=== PATIENT | male | born 1950 | race Caucasian/White ===

== ENCOUNTER 2018-12-29 11:35 | Inpatient (IN) | payer OTHER, BC, MEDICARE ==
[2018-12-29] MEDS ORDERED: PIPERACILLIN/TAZOBACT 3.375 GM 3.375 GM in SODIUM CHLORIDE 0.9% 100 ML 100 ML IV ONE (12:42)
[2018-12-29] MEDS ORDERED: SODIUM CHLORIDE 0.9% 50 ML 25 ML IV PRN (12:42)
[2018-12-29 12:55] LABS: BASOPHILS % (AUTO) 0 % (0-3); EOSINOPHILS % (AUTO) 0 % (0-9); HEMATOCRIT 40 % (39-53); HEMOGLOBIN 12.6 gm/dl (13.5-17.7); LYMPHOCYTES % (AUTO) 3.1 % (10-50); MEAN CORPUSCULAR HEMOGLOBIN 28.4 pg (27.0-32.0); MEAN CORPUSCULAR HGB CONC 31.8 gm/dl (32.0-36.0); MEAN CORPUSCULAR VOLUME 89 fL (80-100); MONOCYTES % (AUTO) 11.5 % (0-12); NEUTROPHILS % (AUTO) 84.9 % (37-80)
[2018-12-29 13:04] LABS: INR 1.13 (0.86-1.12)
[2018-12-29 13:09] LABS: ALBUMIN 2.5 gm/dl (3.4-5.0); BILIRUBIN,TOTAL 0.9 mg/dl (0.2-1.0); CALCIUM 8.3 mg/dl (8.5-10.1); CARBON DIOXIDE 30.4 mEq/L (21-32); CREATININE 1.03 mg/dl (0.80-1.30); POTASSIUM 3.5 mMol/L (3.5-5.1); TOTAL PROTEIN 6.9 gm/dl (6.4-8.2)
[2018-12-29] MEDS: SODIUM CHLORIDE 0.9% FLUSH 10 ML SOL IV PRN (13:25)
[2018-12-29] MEDS ORDERED: PIPERACILLIN/TAZOBACT 3.375 GM PDS IV ONE ×2 (13:34→19:58)
[2018-12-29 13:54] LABS: CRP INFLAMMATORY 17.39 mg/dl (0.00-0.33)
[2018-12-29 14:03] LABS: LACTIC ACID 1.2 mMol/L (0.0-2.0)
[2018-12-29] MEDS ORDERED: SODIUM CHLORIDE 0.9% 1000ML 1,000 ML IV ONE (15:28)
[2018-12-29] MEDS: SODIUM CHLORIDE 0.9% FLUSH 10 ML SOL IV SCH (17:31)
[2018-12-29] MEDS: IBUPROFEN 600 MG TAB PO PRN (17:57)
[2018-12-29 18:31] LABS: APPEARANCE,URINE Clear; BILIRUBIN,URINE 2+ (NEGATIVE); COLOR,URINE Amber; GLUCOSE, URINE (UA) TRACE (NEGATIVE); KETONES,URINE TRACE (NEGATIVE); LEUKOCYTE ESTERASE ,URINE NEGATIVE (NEGATIVE); NITRATE,URINE NEGATIVE (NEGATIVE); OCCULT BLOOD,URINE 1+ (NEG-TRACE); UROBILINOGEN,URINE >=8.0 (0.2-1.0 EU)
[2018-12-29] MEDS: ENOXAPARIN 40 MG SOL SC SCH (18:49)
[2018-12-29 19:03] LABS: ICTOTEST,URINE NEGATIVE (NEGATIVE)
[2018-12-29 19:04] LABS: BACTERIA 1+ (< 1+); CRYSTALS NEGATIVE (0-3 AVE/HPF)
[2018-12-29] MEDS ORDERED: SODIUM CHLORIDE 0.9% 100 ML 100 ML IV ONE (19:58)
[2018-12-29] MEDS: PIPERACILLIN/TAZOBACT 3.375 GM 3.375 GM in SODIUM CHLORIDE 0.9% 100 ML 100 ML IV SCH (21:06)
[2018-12-30] MEDS: SODIUM CHLORIDE 0.9% FLUSH 10 ML SOL IV SCH ×5 (01:06→21:09)
[2018-12-30] MEDS ORDERED: PIPERACILLIN/TAZOBACT 3.375 GM PDS IV ONE ×4 (02:40→19:38)
[2018-12-30] MEDS ORDERED: SODIUM CHLORIDE 0.9% 100 ML 100 ML IV ONE ×4 (02:40→19:38)
[2018-12-30] MEDS: SODIUM CHLORIDE 0.9% FLUSH 10 ML SOL IV PRN ×3 (02:53→20:00)
[2018-12-30] MEDS: PIPERACILLIN/TAZOBACT 3.375 GM 3.375 GM in SODIUM CHLORIDE 0.9% 100 ML 100 ML IV SCH ×4 (02:53→21:10)
[2018-12-30 07:25] LABS: CALCIUM 8.1 mg/dl (8.5-10.1); CARBON DIOXIDE 30.7 mEq/L (21-32); CREATININE 0.93 mg/dl (0.80-1.30); CRP INFLAMMATORY 18.57 mg/dl (0.00-0.33); POTASSIUM 3.7 mMol/L (3.5-5.1)
[2018-12-30 07:28] LABS: BASOPHILS % (AUTO) 1 % (0-3); EOSINOPHILS % (AUTO) 1 % (0-9); HEMATOCRIT 35 % (39-53); HEMOGLOBIN 11.5 gm/dl (13.5-17.7); LYMPHOCYTES % (AUTO) 6.7 % (10-50); MEAN CORPUSCULAR HEMOGLOBIN 29.2 pg (27.0-32.0); MEAN CORPUSCULAR VOLUME 89 fL (80-100); MONOCYTES % (AUTO) 7.5 % (0-12); NEUTROPHILS % (AUTO) 84.7 % (37-80)
[2018-12-30] MEDS: ACETAMINOPHEN 325 MG PO PRN ×3 (08:39→21:43)
[2018-12-30] MEDS: MULTIVITAMIN2 1 EA TAB PO SCH (08:39)
[2018-12-30] MEDS ORDERED: SODIUM CHLORIDE 0.9% 250 ML 250 ML IV ONE (18:12)
[2018-12-30] MEDS ORDERED: VANCOMYCIN HYDROCHLORIDE 500 MG PDS IV ONE (18:12)
[2018-12-30] MEDS: VANCOMYCIN HCL 500 MG PDS 1,250 MG in SODIUM CHLORIDE 0.9% 250 ML 250 ML IV SCH (18:29)
[2018-12-30] MEDS: ENOXAPARIN 40 MG SOL SC SCH (18:30)
[2018-12-31] MEDS ORDERED: PIPERACILLIN/TAZOBACT 3.375 GM PDS IV ONE ×4 (02:09→21:02)
[2018-12-31] MEDS ORDERED: SODIUM CHLORIDE 0.9% 100 ML 100 ML IV ONE ×4 (02:09→21:02)
[2018-12-31] MEDS: IBUPROFEN 600 MG TAB PO PRN ×3 (02:17→22:13)
[2018-12-31] MEDS: PIPERACILLIN/TAZOBACT 3.375 GM 3.375 GM in SODIUM CHLORIDE 0.9% 100 ML 100 ML IV SCH ×4 (02:18→21:19)
[2018-12-31] MEDS: SODIUM CHLORIDE 0.9% FLUSH 10 ML SOL IV SCH ×3 (02:18→15:30)
[2018-12-31] MEDS ORDERED: VANCOMYCIN HYDROCHLORIDE 500 MG PDS IV ONE ×2 (05:28→16:50)
[2018-12-31] MEDS ORDERED: SODIUM CHLORIDE 0.9% 250 ML 250 ML IV ONE ×2 (05:28→16:50)
[2018-12-31] MEDS: VANCOMYCIN HCL 500 MG PDS 1,250 MG in SODIUM CHLORIDE 0.9% 250 ML 250 ML IV SCH ×2 (06:20→17:56)
[2018-12-31] MEDS: SODIUM CHLORIDE 0.9% FLUSH 10 ML SOL IV PRN ×4 (06:21→21:19)
[2018-12-31 07:36] LABS: CALCIUM 8.1 mg/dl (8.5-10.1); CARBON DIOXIDE 29.1 mEq/L (21-32); CREATININE 0.97 mg/dl (0.80-1.30); CRP INFLAMMATORY 15.43 mg/dl (0.00-0.33); POTASSIUM 3.4 mMol/L (3.5-5.1)
[2018-12-31 07:46] LABS: BASOPHILS % (AUTO) 1 % (0-3); EOSINOPHILS % (AUTO) 1 % (0-9); HEMATOCRIT 34 % (39-53); LYMPHOCYTES % (AUTO) 5.5 % (10-50); MEAN CORPUSCULAR HGB CONC 32.6 gm/dl (32.0-36.0); MEAN CORPUSCULAR VOLUME 89 fL (80-100); MONOCYTES % (AUTO) 8.2 % (0-12); NEUTROPHILS % (AUTO) 85.1 % (37-80)
[2018-12-31 08:33] LABS: APPEARANCE,URINE Clear; BILIRUBIN,URINE NEGATIVE (NEGATIVE); COLOR,URINE Yellow; GLUCOSE, URINE (UA) NEGATIVE (NEGATIVE); KETONES,URINE NEGATIVE (NEGATIVE); LEUKOCYTE ESTERASE ,URINE NEGATIVE (NEGATIVE); NITRATE,URINE NEGATIVE (NEGATIVE); OCCULT BLOOD,URINE 2+ (NEG-TRACE)
[2018-12-31 08:35] LABS: BACTERIA 1+ (< 1+); CRYSTALS NEGATIVE (0-3 AVE/HPF)
[2018-12-31] MEDS: MULTIVITAMIN2 1 EA TAB PO SCH (08:36)
[2018-12-31] MEDS: ACETAMINOPHEN 325 MG PO PRN (14:54)
[2018-12-31] MEDS: ENOXAPARIN 40 MG SOL SC SCH (17:56)
[2019-01-01] MEDS: SODIUM CHLORIDE 0.9% FLUSH 10 ML SOL IV SCH ×3 (01:48→17:54)
[2019-01-01] MEDS ORDERED: SODIUM CHLORIDE 0.9% 100 ML 100 ML IV ONE ×4 (03:08→18:23)
[2019-01-01] MEDS ORDERED: PIPERACILLIN/TAZOBACT 3.375 GM PDS IV ONE ×4 (03:08→18:21)
[2019-01-01] MEDS: PIPERACILLIN/TAZOBACT 3.375 GM 3.375 GM in SODIUM CHLORIDE 0.9% 100 ML 100 ML IV SCH ×4 (03:14→21:22)
[2019-01-01] MEDS: SODIUM CHLORIDE 0.9% FLUSH 10 ML SOL IV PRN ×2 (03:15→06:14)
[2019-01-01] MEDS: ACETAMINOPHEN 325 MG PO PRN ×3 (04:09→22:15)
[2019-01-01] MEDS ORDERED: VANCOMYCIN HYDROCHLORIDE 500 MG PDS IV ONE ×2 (05:59→17:32)
[2019-01-01] MEDS ORDERED: SODIUM CHLORIDE 0.9% 250 ML 250 ML IV ONE ×2 (05:59→17:32)
[2019-01-01] MEDS: VANCOMYCIN HCL 500 MG PDS 1,250 MG in SODIUM CHLORIDE 0.9% 250 ML 250 ML IV SCH ×2 (06:13→17:54)
[2019-01-01 07:19] LABS: BASOPHILS % (AUTO) 0 % (0-3); EOSINOPHILS % (AUTO) 0 % (0-9); HEMATOCRIT 33 % (39-53); HEMOGLOBIN 10.6 gm/dl (13.5-17.7); LYMPHOCYTES % (AUTO) 3.4 % (10-50); MEAN CORPUSCULAR HEMOGLOBIN 28.7 pg (27.0-32.0); MEAN CORPUSCULAR HGB CONC 32.6 gm/dl (32.0-36.0); MEAN CORPUSCULAR VOLUME 88 fL (80-100); NEUTROPHILS % (AUTO) 88.7 % (37-80)
[2019-01-01 07:36] LABS: CALCIUM 7.7 mg/dl (8.5-10.1); CARBON DIOXIDE 29.4 mEq/L (21-32); CREATININE 0.9 mg/dl (0.80-1.30); CRP INFLAMMATORY 11.5 mg/dl (0.00-0.33); POTASSIUM 3.3 mMol/L (3.5-5.1)
[2019-01-01] MEDS: MULTIVITAMIN2 1 EA TAB PO SCH (12:37)
[2019-01-01] MEDS: IBUPROFEN 600 MG TAB PO PRN (17:17)
[2019-01-01] MEDS: ENOXAPARIN 40 MG SOL SC SCH (17:54)
[2019-01-01] MEDS: POTASSIUM CHLORIDE 10 MEQ TER PO SCH (22:17)
[2019-01-02] MEDS: SODIUM CHLORIDE 0.9% FLUSH 10 ML SOL IV SCH ×3 (01:24→16:06)
[2019-01-02] MEDS: POTASSIUM CHLORIDE 10 MEQ TER PO SCH ×2 (01:24→04:10)
[2019-01-02] MEDS: IBUPROFEN 600 MG TAB PO PRN ×3 (02:09→22:07)
[2019-01-02] MEDS ORDERED: PIPERACILLIN/TAZOBACT 3.375 GM PDS IV ONE ×4 (02:22→20:10)
[2019-01-02] MEDS ORDERED: SODIUM CHLORIDE 0.9% 100 ML 100 ML IV ONE ×4 (02:22→20:10)
[2019-01-02] MEDS: PIPERACILLIN/TAZOBACT 3.375 GM 3.375 GM in SODIUM CHLORIDE 0.9% 100 ML 100 ML IV SCH ×4 (02:28→20:28)
[2019-01-02] MEDS ORDERED: VANCOMYCIN HYDROCHLORIDE 500 MG PDS IV ONE ×2 (06:20→17:59)
[2019-01-02] MEDS ORDERED: SODIUM CHLORIDE 0.9% 250 ML 250 ML IV ONE (06:20)
[2019-01-02] MEDS: VANCOMYCIN HCL 500 MG PDS 1,250 MG in SODIUM CHLORIDE 0.9% 250 ML 250 ML IV SCH (06:27)
[2019-01-02 07:28] LABS: CALCIUM 7.8 mg/dl (8.5-10.1); CREATININE 0.88 mg/dl (0.80-1.30); CRP INFLAMMATORY 10.41 mg/dl (0.00-0.33); POTASSIUM 3.9 mMol/L (3.5-5.1)
[2019-01-02 07:29] LABS: BASOPHILS % (AUTO) 1 % (0-3); EOSINOPHILS % (AUTO) 1 % (0-9); HEMATOCRIT 33 % (39-53); HEMOGLOBIN 10.7 gm/dl (13.5-17.7); LYMPHOCYTES % (AUTO) 6.6 % (10-50); MEAN CORPUSCULAR HEMOGLOBIN 29.2 pg (27.0-32.0); MEAN CORPUSCULAR HGB CONC 32.7 gm/dl (32.0-36.0); MEAN CORPUSCULAR VOLUME 89 fL (80-100); MONOCYTES % (AUTO) 4.7 % (0-12); NEUTROPHILS % (AUTO) 87.6 % (37-80)
[2019-01-02 07:34] LABS: CARBON DIOXIDE 30.5 mEq/L (21-32)
[2019-01-02] MEDS ORDERED: LIDOCAINE 1% W/EPI MPF 30 ML SOL INFIL ONE (08:05)
[2019-01-02] MEDS: MULTIVITAMIN2 1 EA TAB PO SCH (08:56)
[2019-01-02] MEDS ORDERED: SODIUM CHLORIDE 0.9% 500 ML 500 ML IV ONE (17:59)
[2019-01-02] MEDS: VANCOMYCIN HCL 500 MG PDS 2,000 MG in SODIUM CHLORIDE 0.9% 500 ML 500 ML IV SCH (18:12)
[2019-01-02] MEDS: ENOXAPARIN 40 MG SOL SC SCH (18:12)
[2019-01-02] MEDS: ACETAMINOPHEN 325 MG PO PRN (20:27)
[2019-01-03] MEDS ORDERED: PIPERACILLIN/TAZOBACT 3.375 GM PDS IV ONE ×4 (02:56→20:38)
[2019-01-03] MEDS ORDERED: SODIUM CHLORIDE 0.9% 100 ML 100 ML IV ONE ×4 (02:56→20:38)
[2019-01-03] MEDS: SODIUM CHLORIDE 0.9% FLUSH 10 ML SOL IV SCH ×3 (03:15→15:58)
[2019-01-03] MEDS: PIPERACILLIN/TAZOBACT 3.375 GM 3.375 GM in SODIUM CHLORIDE 0.9% 100 ML 100 ML IV SCH ×4 (03:15→20:55)
[2019-01-03] MEDS ORDERED: VANCOMYCIN HYDROCHLORIDE 500 MG PDS IV ONE ×2 (05:57→18:08)
[2019-01-03] MEDS ORDERED: SODIUM CHLORIDE 0.9% 500 ML 500 ML IV ONE ×2 (05:57→18:08)
[2019-01-03] MEDS: VANCOMYCIN HCL 500 MG PDS 2,000 MG in SODIUM CHLORIDE 0.9% 500 ML 500 ML IV SCH ×2 (06:13→18:26)
[2019-01-03] MEDS: MULTIVITAMIN2 1 EA TAB PO SCH (08:35)
[2019-01-03] MEDS: IBUPROFEN 600 MG TAB PO PRN ×2 (13:55→22:09)
[2019-01-03] MEDS: ENOXAPARIN 40 MG SOL SC SCH (18:26)
[2019-01-04] MEDS ORDERED: SODIUM CHLORIDE 0.9% 100 ML 100 ML IV ONE ×4 (02:39→21:08)
[2019-01-04] MEDS ORDERED: PIPERACILLIN/TAZOBACT 3.375 GM PDS IV ONE ×4 (02:39→21:07)
[2019-01-04] MEDS: PIPERACILLIN/TAZOBACT 3.375 GM 3.375 GM in SODIUM CHLORIDE 0.9% 100 ML 100 ML IV SCH ×4 (03:24→21:17)
[2019-01-04] MEDS: SODIUM CHLORIDE 0.9% FLUSH 10 ML SOL IV SCH ×4 (03:24→21:18)
[2019-01-04] MEDS ORDERED: VANCOMYCIN HYDROCHLORIDE 500 MG PDS IV ONE ×2 (06:08→15:36)
[2019-01-04] MEDS ORDERED: SODIUM CHLORIDE 0.9% 500 ML 500 ML IV ONE ×2 (06:21→15:36)
[2019-01-04] MEDS: VANCOMYCIN HCL 500 MG PDS 2,000 MG in SODIUM CHLORIDE 0.9% 500 ML 500 ML IV SCH ×2 (06:24→17:32)
[2019-01-04 07:45] LABS: BASOPHILS % (AUTO) 1 % (0-3); EOSINOPHILS % (AUTO) 2 % (0-9); HEMATOCRIT 32 % (39-53); HEMOGLOBIN 10.7 gm/dl (13.5-17.7); LYMPHOCYTES % (AUTO) 13.1 % (10-50); MEAN CORPUSCULAR HEMOGLOBIN 29.3 pg (27.0-32.0); MEAN CORPUSCULAR HGB CONC 33.3 gm/dl (32.0-36.0); MEAN CORPUSCULAR VOLUME 88 fL (80-100); MONOCYTES % (AUTO) 7.7 % (0-12); NEUTROPHILS % (AUTO) 76.6 % (37-80)
[2019-01-04 08:02] LABS: CALCIUM 7.9 mg/dl (8.5-10.1); CREATININE 0.97 mg/dl (0.80-1.30); CRP INFLAMMATORY 5.95 mg/dl (0.00-0.33); POTASSIUM 3.7 mMol/L (3.5-5.1)
[2019-01-04] MEDS: SODIUM CHLORIDE 0.9% FLUSH 10 ML SOL IV PRN ×2 (09:21→10:00)
[2019-01-04] MEDS: MULTIVITAMIN2 1 EA TAB PO SCH (09:25)
[2019-01-04] MEDS: IBUPROFEN 600 MG TAB PO PRN ×2 (12:53→23:14)
[2019-01-04] MEDS: ENOXAPARIN 40 MG SOL SC SCH (18:36)
[2019-01-04] MEDS: ACETAMINOPHEN 325 MG PO PRN (19:18)
[2019-01-05] MEDS ORDERED: PIPERACILLIN/TAZOBACT 3.375 GM PDS IV ONE ×4 (02:54→21:15)
[2019-01-05] MEDS ORDERED: SODIUM CHLORIDE 0.9% 100 ML 100 ML IV ONE ×4 (02:54→21:15)
[2019-01-05] MEDS: SODIUM CHLORIDE 0.9% FLUSH 10 ML SOL IV SCH ×4 (03:11→18:05)
[2019-01-05] MEDS: PIPERACILLIN/TAZOBACT 3.375 GM 3.375 GM in SODIUM CHLORIDE 0.9% 100 ML 100 ML IV SCH ×4 (03:12→21:26)
[2019-01-05] MEDS: VANCOMYCIN HCL 500 MG PDS 2,000 MG in SODIUM CHLORIDE 0.9% 500 ML 500 ML IV SCH ×2 (05:44→18:10)
[2019-01-05 07:21] LABS: BASOPHILS % (AUTO) 1 % (0-3); CALCIUM 8.1 mg/dl (8.5-10.1); CARBON DIOXIDE 28.7 mEq/L (21-32); CRP INFLAMMATORY 3.59 mg/dl (0.00-0.33); EOSINOPHILS % (AUTO) 2 % (0-9); HEMATOCRIT 34 % (39-53); HEMOGLOBIN 10.6 gm/dl (13.5-17.7); LYMPHOCYTES % (AUTO) 14.6 % (10-50); MEAN CORPUSCULAR HEMOGLOBIN 28.3 pg (27.0-32.0); MEAN CORPUSCULAR HGB CONC 31.6 gm/dl (32.0-36.0); MEAN CORPUSCULAR VOLUME 90 fL (80-100); MONOCYTES % (AUTO) 8.1 % (0-12); POTASSIUM 3.8 mMol/L (3.5-5.1)
[2019-01-05 07:52] LABS: INR 0.99 (0.86-1.12)
[2019-01-05] MEDS: MULTIVITAMIN2 1 EA TAB PO SCH (09:32)
[2019-01-05] MEDS ORDERED: LACTATED RINGERS 1,000 ML IV ONE (12:24)
[2019-01-05] MEDS ORDERED: PROPOFOL 10 MG/ML 200 MG/20 ML EMU IV ONE (12:29)
[2019-01-05] MEDS ORDERED: LIDOCAINE HCL 1% MPF 30 SOL ONE (12:29)
[2019-01-05] MEDS ORDERED: BUPIVACAINE HCL 0.25% MPF 30 ML SOL INFIL ONE ×2 (14:20)
[2019-01-05] MEDS ORDERED: FENTANYL 100MCG/2ML SOL ONE (14:51)
[2019-01-05] MEDS: FENTANYL 100MCG/2ML SOL ONE ×2 (15:44→16:04)
[2019-01-05] MEDS ORDERED: MORPHINE SULFATE 10 MG/ML SOL IV PRN (16:47)
[2019-01-05] MEDS ORDERED: VANCOMYCIN HYDROCHLORIDE 500 MG PDS IV ONE ×2 (17:05→17:07)
[2019-01-05] MEDS ORDERED: SODIUM CHLORIDE 0.9% 500 ML 500 ML IV ONE (17:07)
[2019-01-05] MEDS: SODIUM CHLORIDE 0.9% FLUSH 10 ML SOL IV PRN ×2 (17:17→19:29)
[2019-01-05] MEDS: ENOXAPARIN 40 MG SOL SC SCH (18:09)
[2019-01-05] MEDS: APAP/HYDROCODONE 1 EACH TABLET PO PRN ×2 (19:12→22:23)
[2019-01-06] MEDS: SODIUM CHLORIDE 0.9% FLUSH 10 ML SOL IV SCH ×3 (00:55→16:31)
[2019-01-06] MEDS ORDERED: SODIUM CHLORIDE 0.9% 100 ML 100 ML IV ONE ×4 (03:25→20:40)
[2019-01-06] MEDS ORDERED: PIPERACILLIN/TAZOBACT 3.375 GM PDS IV ONE ×4 (03:25→20:40)
[2019-01-06] MEDS: PIPERACILLIN/TAZOBACT 3.375 GM 3.375 GM in SODIUM CHLORIDE 0.9% 100 ML 100 ML IV SCH ×4 (03:38→20:54)
[2019-01-06] MEDS ORDERED: VANCOMYCIN HYDROCHLORIDE 500 MG PDS IV ONE ×2 (05:53→17:45)
[2019-01-06] MEDS ORDERED: SODIUM CHLORIDE 0.9% 500 ML 500 ML IV ONE ×2 (05:54→17:45)
[2019-01-06] MEDS: VANCOMYCIN HCL 500 MG PDS 2,000 MG in SODIUM CHLORIDE 0.9% 500 ML 500 ML IV SCH ×2 (06:13→17:59)
[2019-01-06] MEDS: MULTIVITAMIN2 1 EA TAB PO SCH (08:06)
[2019-01-06] MEDS: IBUPROFEN 600 MG TAB PO PRN (08:27)
[2019-01-06] MEDS: ENOXAPARIN 40 MG SOL SC SCH (17:59)
[2019-01-06] MEDS: SODIUM CHLORIDE 0.9% FLUSH 10 ML SOL IV PRN (20:54)
[2019-01-06] MEDS: ACETAMINOPHEN 325 MG PO PRN (20:58)
[2019-01-07] MEDS ORDERED: PIPERACILLIN/TAZOBACT 3.375 GM PDS IV ONE ×4 (01:38→20:05)
[2019-01-07] MEDS ORDERED: SODIUM CHLORIDE 0.9% 100 ML 100 ML IV ONE ×4 (01:38→20:05)
[2019-01-07] MEDS: PIPERACILLIN/TAZOBACT 3.375 GM 3.375 GM in SODIUM CHLORIDE 0.9% 100 ML 100 ML IV SCH ×4 (02:27→21:13)
[2019-01-07] MEDS: SODIUM CHLORIDE 0.9% FLUSH 10 ML SOL IV SCH ×5 (02:28→21:13)
[2019-01-07] MEDS ORDERED: VANCOMYCIN HYDROCHLORIDE 500 MG PDS IV ONE ×2 (05:22→18:05)
[2019-01-07] MEDS ORDERED: SODIUM CHLORIDE 0.9% 500 ML 500 ML IV ONE ×2 (05:22→18:05)
[2019-01-07] MEDS: VANCOMYCIN HCL 500 MG PDS 2,000 MG in SODIUM CHLORIDE 0.9% 500 ML 500 ML IV SCH ×2 (06:04→18:23)
[2019-01-07] MEDS: IBUPROFEN 600 MG TAB PO PRN ×2 (06:14→18:43)
[2019-01-07] MEDS: MULTIVITAMIN2 1 EA TAB PO SCH (09:03)
[2019-01-07] MEDS: APAP/HYDROCODONE 1 EACH TABLET PO PRN ×2 (11:54→23:10)
[2019-01-07] MEDS: ENOXAPARIN 40 MG SOL SC SCH (18:22)
[2019-01-08] MEDS ORDERED: SODIUM CHLORIDE 0.9% 100 ML 100 ML IV ONE ×4 (02:29→15:27)
[2019-01-08] MEDS ORDERED: PIPERACILLIN/TAZOBACT 3.375 GM PDS IV ONE ×4 (02:29→15:27)
[2019-01-08] MEDS: PIPERACILLIN/TAZOBACT 3.375 GM 3.375 GM in SODIUM CHLORIDE 0.9% 100 ML 100 ML IV SCH ×3 (02:46→15:58)
[2019-01-08] MEDS: SODIUM CHLORIDE 0.9% FLUSH 10 ML SOL IV SCH ×4 (02:46→17:00)
[2019-01-08] MEDS ORDERED: VANCOMYCIN HYDROCHLORIDE 500 MG PDS IV ONE ×2 (04:15→16:07)
[2019-01-08] MEDS ORDERED: SODIUM CHLORIDE 0.9% 500 ML 500 ML IV ONE ×2 (04:15→16:07)
[2019-01-08] MEDS: VANCOMYCIN HCL 500 MG PDS 2,000 MG in SODIUM CHLORIDE 0.9% 500 ML 500 ML IV SCH (05:00)
[2019-01-08 07:21] LABS: BASOPHILS % (AUTO) 1 % (0-3); CALCIUM 8.2 mg/dl (8.5-10.1); CARBON DIOXIDE 28.4 mEq/L (21-32); CREATININE 1.06 mg/dl (0.80-1.30); CRP INFLAMMATORY 2.06 mg/dl (0.00-0.33); EOSINOPHILS % (AUTO) 2 % (0-9); HEMATOCRIT 32 % (39-53); HEMOGLOBIN 10.2 gm/dl (13.5-17.7); MEAN CORPUSCULAR HEMOGLOBIN 27.9 pg (27.0-32.0); MEAN CORPUSCULAR HGB CONC 31.5 gm/dl (32.0-36.0); MEAN CORPUSCULAR VOLUME 89 fL (80-100); MONOCYTES % (AUTO) 7.7 % (0-12); NEUTROPHILS % (AUTO) 69.2 % (37-80); POTASSIUM 3.8 mMol/L (3.5-5.1)
[2019-01-08] MEDS: MULTIVITAMIN2 1 EA TAB PO SCH (09:17)
[2019-01-08] MEDS ORDERED: ONDANSETRON HCL 4 MG/2 ML SOL ONE (10:17)
[2019-01-08] MEDS ORDERED: PROPOFOL 500 MG/50 ML EMU IV ONE (10:17)
[2019-01-08] MEDS ORDERED: MIDAZOLAM 2 MG/2 ML SOL ONE (10:17)
[2019-01-08] MEDS ORDERED: FENTANYL 100MCG/2ML SOL ONE (10:17)
[2019-01-08] MEDS ORDERED: KETAMINE HYDROCHLORIDE 50 MG/ML SOL ONE (10:18)
[2019-01-08] MEDS ORDERED: LACTATED RINGERS 1,000 ML IV ONE (10:30)
[2019-01-08] MEDS ORDERED: LIDOCAINE HCL 1% MPF 30 SOL ONE (11:11)
[2019-01-08] MEDS ORDERED: PROPOFOL 10 MG/ML 200 MG/20 ML EMU IV ONE (12:39)
[2019-01-08] MEDS ORDERED: HYDROMORPHONE 1 MG/ML SYRINGE ONE (13:10)
[2019-01-08] MEDS ORDERED: KETOROLAC TROMETHAMINE 30 MG/ML SOL ONE (13:10)
[2019-01-08 16:16] VITALS: RESP 18
[2019-01-08] MEDS: ENOXAPARIN 40 MG SOL SC SCH (17:56)
[2019-01-08] MEDS: CIPROFLOXACIN HCL 500 MG TAB PO SCH ×2 (17:56→20:21)
[2019-01-08] MEDS: ACETAMINOPHEN 325 MG PO PRN (21:33)
[2019-01-09] MEDS: SODIUM CHLORIDE 0.9% FLUSH 10 ML SOL IV SCH (00:10)
[2019-01-09] MEDS: APAP/HYDROCODONE 1 EACH TABLET PO PRN (02:42)
[2019-01-09] MEDS: CIPROFLOXACIN HCL 500 MG TAB PO SCH (06:25)
[2019-01-09] MEDS: MULTIVITAMIN2 1 EA TAB PO SCH (08:51)
[2019-01-09 14:10] VITALS: BP 110/61; PULSE 62; TEMP 98.2; O2SAT 95
== END 2019-01-09 13:55 | disposition home or self-care (01) | DRG 988 ==
LOC: ED 11:35 → ACUTE CARE 14:05 → UNDOADMIN 14:05 → ACUTE CARE 14:30
PROVIDERS: ADMIT Emergency Medicine; ATTEND Emergency Medicine
PROC: 0MBN0ZZ Excision of Right Knee Bursa and Ligament, Open Approach (ICD-10-PCS; principal; 2019-01-05 14:00)
PROC: 0MBN0ZZ Excision of Right Knee Bursa and Ligament, Open Approach (ICD-10-PCS; 2019-01-08)
DX: L03.115 Cellulitis of right lower limb (principal); L97.812 Non-pressure chronic ulcer of other part of right lower leg with fat layer exposed; R82.90 Unspecified abnormal findings in urine; R05 Cough; M25.561 Pain in right knee; L02.415 Cutaneous abscess of right lower limb; R35.0 Frequency of micturition; M71.161 Other infective bursitis, right knee; B96.89 Other specified bacterial agents as the cause of diseases classified elsewhere
CPT/HCPCS: 36415; 51798; 71045; 73590; 80048; 80053; 81001; 82550; 85025; 85610; 85651; 87040; 87070; 87075; 87077; 87088; 87186; 99231; 99232; 99251; 99283; 99291; J1650; J1885; J2250; J2405; J2543; J3010; J3370; A6219; A6232; A6402; A6446; A9270-GY; J1170; J2001; J2704; J3490; L1830